=== PATIENT | male | born 1985 | race African-American/Black ===

== ENCOUNTER 2019-03-20 20:45 | Emergency (ER) | payer OTHER ==
[~2019-03-20] VITALS: Ht 182.9 cm; Wt 85.0 kg
[2019-03-20] MEDS ORDERED: ACETAMINOPHEN 500MG TABLET PO ONE (23:45)
[2019-03-21 00:02] VITALS: BP 117/81
== END 2019-03-21 00:05 | disposition home or self-care (01) ==
LOC: ER 20:45
DX: R05 Cough (principal)
CPT/HCPCS: 99283